=== PATIENT | female | born 1995 | race Asian ===

== ENCOUNTER 2024-05-14 07:41 | Inpatient (IN) ==
[2024-05-14] MEDS ORDERED: OXYTOCIN 30 UNITS/NSS 30 UNITS/500 ML BAG IV PRN (08:42)
[2024-05-14] MEDS ORDERED: LIDOCAINE 1% LOCAL 20 ML VIAL INFIL PRN (08:42)
[2024-05-14] MEDS: LACTATED RINGER'S 1,000 ML IV PRN (09:30)
[2024-05-14] MEDS: OXYTOCIN 30 UNITS/NSS 30 UNITS/500 ML BAG IV PRN (09:45)
--- NOTE | 2024-05-14 09:46 | Labor Progress Brief Note ---
Date of Service May 14, 2024 Subjective 29yo at 40w1d for IOL due to postdates. No OB c/o on arrival. Was unable to be brought to L&D for crum last night due to high census. Assessment & Plan (1) Encounter for induction of labor: Plan: Crum and pitocin now, epidural prn. status reassuring thus far. Admission and Anticipated Discharge Date Admission Date: May 14, 2024 Physical Exam Genitourinary: monitoring was used to ensure reassuring status. The patient was verbally consented for placement of a crum for cervical ripening, with discussion of risks, benefits and alternatives. All her questions were answer ed. Her legs were placed in lithotomy position. A lubricated, gloved hand was used to examine the cervix. A stylet was lubricated and inserted into a crum catheter to give it stiffness, and the crum catheter was then advanced along my fingers until it reached the external cervical os. The cervix was 1/90/-2. The crum was then fed forward off of the stylet, which was itself never moved beyo nd the external os, such that the soft catheter advanced into the uterine cavity outside of the amnion until the balloon was definitely above the internal cervical os. The balloon was then inflated using sterile water to 30cc volume. Gentle traction was used to seat the balloon downward against the internal cervical os. My hand and the stylet were removed from the vagina, and the crum was secured to the patient's leg with a standard crum holding sticker. There was no significant bleeding or leakage of fluid. The heart tones remained reassuring after this process, which the patient tolerated well. Results & Data Vital Signs (Past 12 Hours) Vital Signs Temp Pulse Resp BP 05/14/24 08:25 96 H 123/74 05/14/24 08:22 98.4 F 85 16 129/75 Coding Level of Care Code None Diagnoses Encounter for induction of labor Z34.90
[2024-05-14 09:50] LABS: Hematocrit (blood only) 39.3 % (37.0-47.0); Hemoglobin 13.4 g/dl (12.0-16.0); Mean Corpuscular Hemoglobin 31.3 pg (25.0-34.0); Mean Corpuscular Hgb Conc 34.1 g/dL (32.0-36.0); Mean Corpuscular Volume 91.8 fL (80.0-100.0); Mean Platelet Volume 13.2 fL (9.4-12.4); Platelet Count 132 K/uL (130-400); RDW Coefficient of Variation 13.2 % (11.5-14.5); RDW Standard Deviation 43.9 fL (36.4-46.3); Red Blood Count 4.28 M/uL (4.20-5.40); White Blood Count 7.99 K/ul (4.8-10.8)
--- NOTE | 2024-05-14 16:54 | Labor Progress Brief Note ---
Date of Service May 14, 2024 Subjective Tolerating contractions but starting to feel discomfort. Assessment & Plan Admission and Anticipated Discharge Date Admission Date: May 14, 2024 Physical Exam Genitourinary: Nuñez removed from vagina. 4/75/-2 FHT Cat 1 [place] Q5 Results & Data Vital Signs (Past 12 Hours) Vital Signs Temp Pulse Resp BP 05/14/24 14:48 98.4 F 05/14/24 14:48 74 05/14/24 14:48 128/74 05/14/24 13:16 75 05/14/24 13:16 119/73 05/14/24 12:14 78 05/14/24 12:14 131/80 05/14/24 11:16 78 05/14/24 11:16 131/88 05/14/24 10:11 81 05/14/24 10:11 134/79 05/14/24 08:25 96 H 123/74 05/14/24 08:22 98.4 F 85 16 129/75 Coding Level of Care Code None
[2024-05-14] MEDS ORDERED: SODIUM CHLORIDE 0.9% PF INJ 10 ML VIAL EPI STA (18:17)
[2024-05-14] MEDS ORDERED: NALOXONE HCL 1 MG in SODIUM CHLORIDE 0.9% 1,000 ML IV PRN (18:17)
[2024-05-14] MEDS ORDERED: NALBUPHINE HCL 5 MG in SYRINGE 0 ML IV PRN (18:17)
[2024-05-14] MEDS ORDERED: ePHEDrine sulfate 50 MG/ML AMP IV PRN (18:17)
[2024-05-14] MEDS ORDERED: NALOXONE HCL 0.4 MG/1 ML VIAL/CARP IV PRN (18:17)
[2024-05-14] MEDS ORDERED: ONDANSETRON INJ 2 MG/ML 2 ML VIAL IV PRN (18:17)
[2024-05-14] MEDS ORDERED: SODIUM CHLORIDE 0.9% PF INJ 10 ML VIAL EPI PRN (18:17)
[2024-05-14] MEDS ORDERED: fentaNYL citrate PF 100 MCG/2 ML VIAL EPI STA (18:17)
[2024-05-14] MEDS ORDERED: BUPIVACAINE 0.25% PF 30 ML VIAL EPI STA (18:17)
[2024-05-14] MEDS ORDERED: diphenhydrAMINE 50 MG/ML VIAL IV PRN (18:17)
[2024-05-14] MEDS ORDERED: ROPIVACAINE 0.5% PF 5 MG/ML 20 ML VIAL EPI PRN (18:17)
[2024-05-14] MEDS ORDERED: LIDOCAINE 2%/EPINEPHRINE 1:200,000 20 ML PF EPI STA (18:17)
[2024-05-14] MEDS ORDERED: fentaNYL citrate PF 100 MCG/2 ML VIAL EPI PRN (18:17)
[2024-05-14] MEDS ORDERED: BUPIVACAINE 0.25% PF 30 ML VIAL EPI PRN (18:17)
[2024-05-14] MEDS ORDERED: LIDOCAINE 2% MPF LOCAL 5 ML VIAL EPI PRN (18:17)
--- NOTE | 2024-05-14 18:18 | Anesthesiology Consultation ---
Date of Service May 14, 2024 Assessment & Plan ASA ASA2 Proposed Anesthesia Anesthesia Type: Labor Epidural Risk / Benefits Reviewed With: PT / POA / Parent / Guardian, Accepts Plan and Informed Consent Obtained History Height/Weight Height: 5 ft Weight: 62.142 kg Allergies Allergy/AdvReac Type Severity Reaction Status Date / Time No Known Allergies Allergy Verified 05/13/24 11:04 Medications Home Medications Medication Instructions Recorded Confirmed Last Taken vits no.124-ferrous fum 1 tab PO DAILY 05/14/24 05/14/24 05/13/24 27 mg iron-folic acid 800 mcg tablet ( Vitamin) Active Medications Generic Name Dose Route Start Last Admin Trade Name Freq PRN Reason Stop Dose Admin Oxytocin 30 units in 500 mls @ 8 mls/hr 05/14/24 08:42 05/14/24 17:45 Pitocin 30 Units/Nss IV 05/16/24 08:41 0.48 units/hr .Q24H PRN 8 mls/hr Labor Induction/Augmentation Titration Protocol 0.48 UNITS/HR Lactated Ringer's 1,000 mls @ 125 mls/hr 05/14/24 08:42 05/14/24 17:16 Lr IV 05/16/24 08:41 125 mls/hr .Q8H PRN Administration L&D Protocol Protocol Past Medical History Medical History (Updated 05/14/24 @ 09:46 by Nia Guevara MD) History of chicken pox Exercise / Class Metabolic Activity II 4-5 Yardwork/Stairs/Walk up hill Past Family History Family History Denies family history of Ovarian cancer Prostate cancer Myocardial infarction Breast cancer Colorectal cancer Past Anesthesia History No Hx of Anesthesia Complications and No Family Hx of Anesthesia Complications History of PONV No Hx of PONV and No Hx of Motion Sickness Social History Smoking Status: Former smoker Do You Dip or Chew Tobacco: No Hx Alcohol Use: Yes Hx Substance Use: No Review of Systems denies fever/cough/ colds/ chest pain/ SOB/ JAKE denies JAKE Physical Exam Vital Signs Last Vital Signs Temp 36.4 C L 05/14/24 17:17 Pulse 101 H 05/14/24 19:00 Resp 18 05/14/24 17:17 BP 112/59 L 05/14/24 19:00 Pulse Ox 100 08/08/24 18:59 ENMT Mouth: no TMJ abnormality and no dentition abnormality Thyromental Distance: > or= 3.5 Finger Breadths Mallampati Class: II Neck neck extension not limited Respiratory normal respiratory effort; no respiratory distress Auscultation: lungs clear to auscultation bilaterally Cardiovascular Rate/Rhythm: regular rate and regular rhythm Neurologic moves all extremities Psychiatric Orientation: alert and oriented x 3 Testing Laboratory Results 05/14/24 09:13
[2024-05-14] MEDS: fentANYL 2 MCG/ML BUPIVacaine 0.125%-NSS 100ML BAG ONE (18:53)
[2024-05-14] MEDS: LIDOCAINE 2%/EPINEPHRINE 1:200,000 20 ML PF ONE (18:53)
[2024-05-14] MEDS: BUPIVACAINE 0.25% PF 30 ML VIAL ONE (18:53)
[2024-05-14] MEDS: fentaNYL citrate PF 100 MCG/2 ML VIAL ONE (18:54)
[2024-05-15] MEDS: fentANYL 2 MCG/ML BUPIVacaine 0.125%-NSS 100ML BAG EPI PRN (01:36)
--- NOTE | 2024-05-15 06:59 | Delivery Summary ---
Vaginal Delivery Summary Date of Service May 15, 2024 Vaginal Delivery Summary DIAGNOSES: 1. Young intrauterine at 40w2d gestation. 2. Induction of Labor for Postdates. 3. Group B Streptococcus Neg. PROCEDURE: Spontaneous vaginal delivery and repair of second degree laceration. SURGEON: Nia Guevara MD. CLOTH BLEACHING RANGE TENDER: None. ESTIMATED BLOOD LOSS: 50 mL. COMPLICATIONS: None. PLACENTA: Spontaneous and intact with a 3-vessel cord. DISPOSITION: Stable to labor and delivery. DESCRIPTION: The patient pushed well and brought the head to in OA position. The infant's head was allowed to deliver with contraction force and no further active pushing, with the perineum protected during this time. There was no nuchal cord. The left shoulder was anterior. The shoulders and body delivered without any difficulty, and the was placed on the maternal abdomen. It was vigorous and moving all extremities, and making respiratory efforts. The cord was doubly clamped by the MD and then cut by the patient's sister. The placenta delivered spontaneously and was noted to be intact and with a 3VC. The cervix, vagina and perineum were examined and were found to have a second degree laceration which was repaired in the usual manner with vicryl suture including a crown stitch to rebuild the perineal body. The fundus was firm and lochia minimal immediately after delivery. [facility] Vaginal Delivery Charge Vaginal Delivery Codes: 79681 global code for the antepartum, delivery, and post-
--- NOTE | 2024-05-15 07:15 | Anesthesia Procedure Note ---
Date of Service May 15, 2024 Anesthesia Post Epidural Note Vital Signs Vital Signs: Temp Pulse Resp BP Pulse Ox 37.0 C 112 H 22 110/63 100 05/15/24 05:06 05/15/24 06:59 05/15/24 05:24 05/15/24 06:59 05/15/24 06:56 Pain Intensity Lower Medial Abdomen: Pain Intensity: 0 Notes Mental Status: alert / awake / arousable Nausea / Vomiting: adequately controlled Pain: adequately controlled Airway Patency, RR, SpO2: stable & adequate BP & HR: stable & adequate Hydration State: stable & adequate Neuraxial Anesthesia: was administered and sensory block is resolving Anesthetic Complications: no major complications apparent and Pt Satisfied with anesthetic care Epidural: Removed without complications and With tip intact
[2024-05-15] MEDS: OXYTOCIN 30 UNITS/500ML NSS IV ONE (08:01)
[2024-05-15] MEDS ORDERED: OXYTOCIN 30 UNITS/NSS 30 UNITS/500 ML BAG IV PRN (09:46)
[2024-05-15] MEDS ORDERED: oxyCODONE/ACETAMINOPHEN 5mg/325mg TAB PO PRN (09:46)
[2024-05-15] MEDS ORDERED: bisacodyL 10 MG SUPP PR PRN (09:46)
[2024-05-15] MEDS ORDERED: HYDROCORTISONE ACETATE 25 MG SUPP PR PRN (09:46)
[2024-05-15] MEDS: IBUPROFEN 600 MG TAB PO PRN (10:57)
[2024-05-15] MEDS: BENZOCAINE 20% SPRY 85 APPLN/85 GM CAN EXT PRN (10:58)
[2024-05-15] MEDS: SODIUM CHLORIDE 0.9% PF INJ 10 ML VIAL ONE (10:58)
[2024-05-15] MEDS: ePHEDrine sulfate 50 MG/ML AMP ONE (10:58)
[2024-05-15] MEDS: DIPHTHER/TETAN/PERTUS Vaccine (Tdap, Adol/Adult) 0.5mL IM ONE (10:58)
[2024-05-15] MEDS: DOCUSATE SODIUM 100 MG CAP PO SCH (20:14)
[2024-05-15] MEDS: ACETAMINOPHEN 325 MG TAB PO PRN (23:52)
[2024-05-16 06:49] LABS: Hematocrit (blood only) 31.1 % (37.0-47.0); Hemoglobin 10.6 g/dl (12.0-16.0)
--- NOTE | 2024-05-16 07:33 | Obstetrical Progress Note ---
Date of Service <Marleni Schneider MD - Last Filed: 05/16/24 07:36> May 16, 2024 Assessment & Plan <Marleni Schneider MD - Last Filed: 05/16/24 07:36> (1) Encounter for assessment: visit type: exam and care immediately after delivery Qualified Code(s): Z39.0 - Encounter for care and examination of mother immediately after delivery Plan PPD 1: stable, routine management -Patient is voiding and ambulating on their own power -Pain is well controlled on as needed analgesia -Tolerating regular diet without nausea or vomiting -Planned to Breast feed * Reassess d/c readiness tomorrow * 6 weeks OB outpatient follow-up <Emma German MD, FACOG - Last Filed: 05/16/24 07:38> (1) Encounter for assessment: Subjective <Marleni Schneidre MD - Last Filed: 05/16/24 07:36> Ambulation: ambulating normally Voiding: no voiding problems Diet Tolerance:: regular diet Lochia:: Moderate Feeding Type:: breast feeding Pt is a 29 y/o female who is now PPD#1 following at 40 weeks. Reports feeling well overall this morning. minimal abdominal cramping and 5/10 pain, well managed on analgesics. Voiding ok. Tolerating meals and able to ambulate some. passing gas and had 2 bowel movements. Some persistent lochia with overall improvement as of this morning. Breast feeding. Pt c/o b/l nipple soreness but no redness or swelling. Review of Systems -Denies fever or chills -Denies dyspnea, chest pain, or palpitations -Denies breast pain -Denies dysuria -Denies headache or changes in vision Physical Exam <Marleni Schneider MD - Last Filed: 05/16/24 07:36> General: Alert and oriented. No acute distress Cardiac: Regular rate and rhythm, no murmurs appreciated Respiratory: Lungs clear to auscultation bilaterally, No increased work of breathing Abdominal: Soft, non-tender, non-distended. Bowel sounds present. Uterus: Uterine fundus firm, palpable below umbilicus Extremities: +1 lower extremity edema, calves non-tender bilaterally Results & Data <Marleni Schneider MD - Last Filed: 05/16/24 07:36> Vital Signs (Past 12 Hours) Vital Signs Temp Pulse Pulse Resp BP Pulse Ox O2 Del Method 05/16/24 07:05 36.4 C L 77 18 103/65 100 Room Air 05/16/24 03:39 37 C 83 14 108/70 98 Room Air 05/16/24 00:13 36.8 C 95 H 16 108/69 99 Room Air 05/15/24 19:43 Room Air Supervising Physician <Emma German MD, FACOG - Last Filed: 05/16/24 07:38> Co-Signing Physician Notes Resident Physician Supervision Note: I interviewed and examined the patient. Discussed with the resident and agree with findings and plan as documented in the note. Any exceptions or clarifications are listed here: Doing well. Continue ppd 1 care. Documented By: Emma German MD, FACOG Resident Activity Tracking <Marleni Schneider MD - Last Filed: 05/16/24 07:36> Resident Involvement: Resident Care Provided Care Provided: OB Delivery
[2024-05-16] MEDS: PRENATAL VITAMIN 1 TAB PO SCH (08:04)
[2024-05-16] MEDS: HYDROCORTISONE 1% CRM 30 GM TUBE EXT PRN (09:01)
--- NOTE | 2024-05-16 11:38 | Obstetrical Progress Note ---
Date of Service May 16, 2024 Assessment & Plan Admission and Anticipated Discharge Date Admission Date: May 14, 2024 Subjective Pt seen in room for complaint of R leg pain. On exam, trace LE edema of bilateral ankles, right mildly worse than left. No calf tenderness, neg Berenice's. States the pain is specifically in ankle, thinks it is because of the swelling. Advised NSAIDs, hydration, she asked for compression socks - will provide these for comfort. Will let us know if this worsens. Results & Data Vital Signs (Past 12 Hours) Vital Signs Temp Pulse Pulse Resp BP Pulse Ox O2 Del Method 05/16/24 07:05 36.4 C L 77 18 103/65 100 Room Air 05/16/24 03:39 37 C 83 14 108/70 98 Room Air 05/16/24 00:13 36.8 C 95 H 16 108/69 99 Room Air PG Care Time/CCT Total # of Minutes Spent Total Time Spent with Patient: Total time spent is greater than 50% in coordination of care (as documented) at patient's floor/unit and/or counseling patient: Coding Level of Care Code None
[2024-05-16] MEDS: diphenhydrAMINE Capsule 25 MG CAP PO PRN (12:24)
[2024-05-16] MEDS: bisacodyL 5 MG TABEC PO SCH (20:45)
[2024-05-16 23:13] VITALS: O2SAT 99
--- NOTE | 2024-05-17 08:54 | Obstetrical Progress Note ---
Date of Service May 17, 2024 Assessment & Plan (1) Encounter for assessment: PPD#2 doing well. Ambulating, eating, drinking, ok. Mild LE bilateral swelling - no calf pain. Compression socks yesterday helped. DC home - instructions reviewed, followup 6w PP. visit type: exam and care immediately after delivery Qualified Code(s): Z39.0 - Encounter for care and examination of mother immediately after delivery Subjective Ambulation: ambulating normally Voiding: no voiding problems Diet Tolerance:: regular diet Lochia:: Moderate Review of Systems All systems reviewed & are unremarkable except as noted in HPI & below Physical Exam Constitutional WD/WN, vitals as above no acute distress Respiratory normal respiratory effort Cardiovascular Rate/Rhythm: regular rate and regular rhythm Gastrointestinal (Abdomen) Inspection/Auscultation: abdomen normal to inspection; abdomen not distended Percussion/Palpation: abdomen soft Genitourinary OB Exam Abdomen: + fundal height Fundus: + firm; not tender Results & Data Vital Signs (Past 12 Hours) Vital Signs Temp Pulse Resp BP Pulse Ox O2 Del Method 05/16/24 23:11 36.3 C L 80 18 117/73 99 Room Air
[2024-05-17 11:12] VITALS: BP 110/68; PULSE 83; RESP 16; TEMP 98.2
== END 2024-05-17 15:34 | disposition home or self-care (01) | DRG 807 ==
LOC: 4S1 07:41 → 4E2 05-15 09:56